=== PATIENT | female | born 1960 | race Caucasian/White ===

== ENCOUNTER → 2017-04-03 | Day surgery (SDC) | payer BC ==
[~2017-04-03] MED LIST: Lactated Ringers 1,000 ML IV SCH; Lidocaine 1%/Sod Bicarbonate in NS 8.4% 1 ML Syringe IDERM PRN; Propofol 200 MG/20 ML SDV ONE; Sodium Chloride 0.9% 10 ML Syringe FLUSH PRN; fentaNYL 100 MCG/2 ML SDV ONE
--- NOTE | 2017-04-03 08:06 | PCM.PREANE ---
Preanesthetic Assessment - Anesthesia/Transfusion/Family Hx Anesthesia History: Prior Anesthesia Without Reaction Family History of Anesthesia Reaction: No Transfusion History: No Prior Transfusion(s) - Review of Systems General: No Symptoms Pulmonary: Other (snoring, awaiting sleep study) Cardiovascular: No Symptoms Gastrointestinal: No Symptoms Neurological: No Symptoms Other: Reports: Depression, Anxiety - Physical Assessment NPO Status Date: 04/02/17 NPO Status Time: 23:00 Pulse: 81 O2 Sat by Pulse Oximetry: 99 Respiratory Rate: 16 Blood Pressure: 109/66 Temperature: 98.7 C Weight: 70 kg ASA Class: 2 Mental Status: Alert & Oriented x3 Airway Class: Mallampati = 2 Dentition: Reports: Normal Dentition Thyro-Mental Finger Breadths: 3 Mouth Opening Finger Breadths: 3 ROM/Head Extension: Full Lungs: Clear to Auscultation, Normal Respiratory Effort Cardiovascular: Regular Rate, Regular Rhythm - Allergies Allergies/Adverse Reactions: Allergies Allergy/AdvReac Type Severity Reaction Status Date / Time No Known Allergies Allergy Verified 03/31/17 14:07 - Blood Blood Available: No Product(s) Available: None - Anesthesia Plan Pre-Op Medication Ordered: None - Acknowledgements Anesthesia Type Planned: MAC Pt an Appropriate Candidate for the Planned Anesthesia: Yes Alternatives and Risks of Anesthesia Discussed w Pt/Guardian: Yes Pt/Guardian Understands and Agrees with Anesthesia Plan: Yes PreAnesthesia Questionnaire HEENT History: Reports: Other (See Below) Other HEENT History: contacts Cardiovascular History: Reports: High Cholesterol Respiratory History: Reports: Other (See Below) Other Respiratory History: checking for sleep apnea Gastrointestinal History: Reports: None Genitourinary History: Reports: Other (See Below) Other Genitourinary History: bladder lift 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: Other (See Below) Other OB/BYN History: menopausal Musculoskeletal History: Reports: Osteoarthritis, Other (See Below) Other Musculoskeletal History: psoriatic arthritis, spondyloarthritis Neurological History: Reports: None Psychiatric History: Reports: Anxiety, Depression, Mood Swings, Other (See Below ) Other Psychiatric History: insomnia Endocrine/Metabolic History: Reports: None Hematologic History: Reports: None Immunologic History: Reports: None Oncologic (Cancer) History: Reports: Basal Cell Carcinoma Dermatologic History: Reports: Other (See Below) Other Dermatologic History: basal cell cancer, psorosis of scalp - Past Surgical History Head Surgeries/Procedures: Reports: None HEENT Surgical History: Reports: Oral Surgery, Tonsillectomy Cardiovascular Surgical History: Reports: None GI Surgical History: Reports: None Female Surgical History: Reports: None Male Surgical History: Reports: None Endocrine Surgical History: Reports: None Neurological Surgical History: Reports: None Musculoskeletal Surgical History: Reports: None Oncologic Surgical History: Reports: None - SUBSTANCE USE Smoking Status *Q: Never Smoker Recreational Drug Use History: No - HOME MEDS Home Medications: Home Meds ALPRAZolam [Xanax] 0.5 mg PO BID PRN 03/31/17 [History] Acetaminophen [Tylenol Extra Strength] 1,000 mg PO Q6H PRN 03/31/17 [History] DULoxetine [Cymbalta] 60 mg PO DAILY 03/31/17 [History] Fluocinolone Acetonide [Synalar 0.01% Top Soln] 1 appful TOP DAILY 03/31/17 [ History] atorvaSTATin [Lipitor] 20 mg PO DAILY 03/31/17 [History] - CURRENT (IN HOUSE) MEDS Current Meds: Current Medications Lactated Ringer's (Ringers, Lactated) 1,000 mls @ 125 mls/hr IV ASDIRECTED KATELYN Stop: 04/03/17 23:00 Lidocaine/Sodium Bicarbonate (Buffered Lidocaine 1% In Ns 8.4%) 0.25 ml IDERM ONETIME PRN PRN Reason: Prior to IV Start Stop: 04/03/17 18:00 Sodium Chloride (Saline Flush) 10 ml FLUSH ASDIRECTED PRN PRN Reason: Keep Vein Open Stop: 04/03/17 18:00
--- NOTE | 2017-04-03 09:27 | PCM.OPNOTE ---
- General Post-Op/Procedure Note Date of Surgery/Procedure: 04/03/17 Operative Procedure(s): colonoscopy to cecum Pre Op Diagnosis: screening colonoscopy Post-Op Diagnosis: Same Anesthesia Technique: MAC Primary Surgeon: Dino De La Garza EBL in mLs: 0 Complications: None Condition: Good
--- NOTE | 2017-04-03 09:31 | PCM48HPAN ---
Post Anesthesia Note - EVALUATION WITHIN 48HRS OF ANESTHETIC Vital Signs in Normal Range: Yes Patient Participated in Evaluation: Yes Respiratory Function Stable: Yes Airway Patent: Yes Cardiovascular Function Stable: Yes Hydration Status Stable: Yes Pain Control Satisfactory: Yes Nausea and Vomiting Control Satisfactory: Yes Mental Status Recovered: Yes Pulse Rate: 76 SaO2: 97 Resp Rate: 16 Temperature: 36.2 C Blood Pressure: 98/58
--- NOTE | 2017-04-04 06:59 | OR ---
DATE OF OPERATION: 04/03/2017 SURGEON: Dino De La Garza MD PREOPERATIVE DIAGNOSIS: Screening colonoscopy. POSTOPERATIVE DIAGNOSIS: Screening colonoscopy. OPERATION PERFORMED: Colonoscopy to cecum done under IV sedation. FINDINGS: Normal study. RECOMMENDATION: Repeat colonoscopy in 10 years. DESCRIPTION OF PROCEDURE: The patient was taken to the endoscopy room, connected to monitoring equipment, given IV sedation, placed in the left lateral position. Perianal area was inspected and was normal. Rectal exam showed good sphincter tone. A video Olympus colonoscope was then introduced into the rectum and threaded up without problem to the cecum, where the appendicular orifice ileocecal valve was noted. Prep was excellent. [place] cleansing score grade A and the scope was slowly withdrawn showing the cecum, ascending colon, transverse colon, descending colon, sigmoid colon, and rectum. The patient tolerated the procedure, sent to recovery room in a stable condition, and will be followed up as needed in the clinic. ANESTHESIA: ESTIMATED BLOOD LOSS: MMODAL /[id number]
== END | disposition home or self-care (01) ==
LOC: JD.SDS 07:26
PROVIDERS: ATTEND Surgery
DX: Z12.11 Encounter for screening for malignant neoplasm of colon (principal); E78.00 Pure hypercholesterolemia, unspecified; F41.1 Generalized anxiety disorder; F32.9 Major depressive disorder, single episode, unspecified; M19.90 Unspecified osteoarthritis, unspecified site; F19.982 Other psychoactive substance use, unspecified with psychoactive substance-induced sleep disorder; L40.8 Other psoriasis; M47.9 Spondylosis, unspecified; Z90.89 Acquired absence of other organs; Z78.0 Asymptomatic menopausal state; Z85.828 Personal history of other malignant neoplasm of skin; Z79.899 Other long term (current) drug therapy
CPT/HCPCS: 45378; J3010; J7120; 00812; J2704

== ENCOUNTER 2022-03-17 06:00 | Day surgery (SDC) | payer BC ==
[~2022-03-17 06:00] MED LIST changes: +Acetaminophen 325 MG Tab PO SCH; -Lactated Ringers 1,000 ML IV SCH; -Lidocaine 1%/Sod Bicarbonate in NS 8.4% 1 ML Syringe IDERM PRN; +Morphine 8 MG, EPINEPHrine 0.3 MG, Cefuroxime 750 MG, Ketorolac 30 MG, Sodium Chloride ... PRN; +Pregabalin 25 MG Cap PO SCH; -Propofol 200 MG/20 ML SDV ONE; -Sodium Chloride 0.9% 10 ML Syringe FLUSH PRN; -fentaNYL 100 MCG/2 ML SDV ONE; +oxyCODONE ER 10 MG TAB.ER PO SCH
[2022-03-17] MEDS ORDERED: EPINEPHrine 1 MG/ML SDV ONE (06:29)
[2022-03-17] MEDS ORDERED: Ropivacaine 0.5% 5 MG/ML 30 ML SDV ONE (06:29)
[2022-03-17] MEDS ORDERED: Lactated Ringers 1,000 ML IV SCH ×2 (06:30→07:00)
[2022-03-17] MEDS ORDERED: fentaNYL 100 MCG/2 ML SDV ONE (06:31)
[2022-03-17] MEDS ORDERED: Midazolam 1 MG/ML 2 ML SDV ONE (06:32)
[2022-03-17] MEDS ORDERED: Propofol 200 MG/20 ML SDV ONE ×2 (06:32→06:33)
[2022-03-17] MEDS ORDERED: Lidocaine 1% 5 ML VIAL ONE (06:32)
[2022-03-17] MEDS ORDERED: ceFAZolin 2 GM Vial ONE (06:32)
[2022-03-17] MEDS ORDERED: Dexmedetomidine 200 MCG/2 ML SDV ONE (06:36)
[2022-03-17] MEDS ORDERED: Lidocaine 1%/Sod Bicarbonate in NS 8.4% 1 ML Syringe IDERM PRN (06:48)
[2022-03-17] MEDS ORDERED: Sodium Chloride 0.9% 10 ML Syringe FLUSH PRN (06:48)
[2022-03-17] MEDS: Tranexamic Acid 1,000 MG/10 ML Vial ONE ×2 (06:57→08:12)
[2022-03-17] MEDS: Vancomycin 1 GM SDV ONE ×2 (06:58→08:12)
[2022-03-17] MEDS: Bupivacaine 0.25% 10 ML SDV ONE ×2 (06:58→08:31)
[2022-03-17] MEDS: Triamcinolone Acetonide 40 MG/ML 1 ML SDV ONE ×2 (06:59→08:31)
[2022-03-17] MEDS ORDERED: Dexamethasone 4 MG/ML 5 ML MDV ONE (07:19)
[2022-03-17] MEDS ORDERED: Ondansetron 4 MG/2 ML SDV ONE (07:19)
[2022-03-17] MEDS ORDERED: Phenylephrine HCl In 0.9% NaCl 1 MG/10 ML Vial ONE (07:27)
[2022-03-17] MEDS ORDERED: ePHEDrine 50 MG/ML SDV ONE (07:36)
[2022-03-17] MEDS ORDERED: Ketorolac 30 MG/ML SDV ONE (08:15)
[2022-03-17] MEDS ORDERED: Lactated Ringers 1,000 ML ONE ×2 (08:19)
[2022-03-17] MEDS ORDERED: Cyclobenzaprine 10 MG Tab PO PRN (08:43)
[2022-03-17] MEDS ORDERED: oxyCODONE 5 MG Tab PO PRN (08:43)
[2022-03-17] MEDS ORDERED: Sodium Chloride 0.9% 10 ML Syringe FLUSH SCH (09:00)
== END 2022-03-17 12:50 | disposition home or self-care (01) ==
LOC: JD.SDS 06:00
PROVIDERS: ATTEND Orthopaedic Surgery
DX: M17.0 Bilateral primary osteoarthritis of knee (principal); F41.9 Anxiety disorder, unspecified; M19.90 Unspecified osteoarthritis, unspecified site; F32.A Depression, unspecified; R63.5 Abnormal weight gain; G47.33 Obstructive sleep apnea (adult) (pediatric); E78.00 Pure hypercholesterolemia, unspecified; Z79.899 Other long term (current) drug therapy; Z98.890 Other specified postprocedural states; Z68.27 Body mass index [BMI] 27.0-27.9, adult
CPT/HCPCS: 01402; 36415; 64447; 73560-26-RT; 73560-RT; 85610; 85730; 97110-GP; 97116-GP; 97161-GP; A9270-GY; C1713; C1776; J0171; J0690; J0697; J1100; J1885; J2250; J2270; J2405; J2704; J2795; J3010; J3301; J3370; J3490; J7120